=== PATIENT | male | born 1975 | race Hispanic/Latino ===

== ENCOUNTER 2021-07-17 17:02 | Emergency (ER) | payer OTHER ==
[~2021-07-17] VITALS: Ht 177.8 cm; Wt 68.5 kg
[2021-07-17 17:04] VITALS: BP 153/86
[2021-07-17 17:25] LABS: APPEARANCE,URINE Clear (CLEAR); BILIRUBIN,URINE Negative (NEGATIVE); COLOR,URINE Yellow (YELLOW); GLUCOSE, URINE (UA) >=1000 mg/dL (NEGATIVE); KETONES,URINE Negative (NEGATIVE); LEUKOCYTE ESTERASE ,URINE Negative (NEGATIVE); NITRATE,URINE Negative (NEGATIVE); OCCULT BLOOD,URINE Negative (NEGATIVE); PROTEIN,URINE Negative (NEGATIVE)
[2021-07-17] MEDS ORDERED: 0.9%NACL 1000ML 1,000 ML IV ONE (17:30)
[2021-07-17 17:34] LABS: BASOPHILS % (AUTO) 0.5 % (0.0-5.0); EOSINOPHILS % (AUTO) 0.7 % (0.0-8.0); HEMATOCRIT 40.4 % (42-54); LYMPHOCYTES % (AUTO) 19.8 % (21.0-51.0); MEAN CORPUSCULAR HEMOGLOBIN 32.2 pg (27.0-33.0); MEAN CORPUSCULAR HGB CONC 33.9 g/dL (32.0-36.0); MEAN CORPUSCULAR VOLUME 94.8 fL (79-99); MONOCYTES % (AUTO) 9.4 % (3.0-13.0); NEUTROPHILS % (AUTO) 69.1 % (40.0-77.0); PLATELET COUNT (AUTO) 256 K/uL (130-400); RED BLOOD CELL COUNT(AUTO) 4.26 MIL/uL (4.50-6.20); RED CELL DISTRIBUTION WIDTH 11.5 % (11.0-15.5); WHITE BLOOD COUNT (AUTO) 4.3 K/uL (4.8-10.8)
[2021-07-17 17:50] LABS: BACTERIA,URINE Rare /HPF (None Seen); MUCUS,URINE Few LPF (None Seen); RBC,URINE 0-1 /HPF (0-1); SQUAMOUS EPITHELIAL CELL,UR Rare /HPF (0-2); WBC,URINE 0-1 /HPF (0-1)
[2021-07-17 17:51] LABS: POTASSIUM 4.8 mmol/L (3.5-5.1)
[2021-07-17 17:56] LABS: ALBUMIN 3.7 g/dL (3.5-5.0); BILIRUBIN,TOTAL 0.7 mg/dL (0.2-1.0); TOTAL PROTEIN, SERUM 8.6 g/dL (6.0-8.3)
[2021-07-17] MEDS ORDERED: KETOROLAC 15MG/ML VIAL (15MG/ML) IV ONE (18:00)
[2021-07-17] MEDS ORDERED: AZIT500T2 PO (18:37)
[2021-07-17] MEDS ORDERED: IBUP-2070 PO (18:37)
== END 2021-07-17 18:51 | disposition home or self-care (01) ==
LOC: EDH 17:02
DX: J18.1 Lobar pneumonia, unspecified organism (principal); R10.12 Left upper quadrant pain; R22.2 Localized swelling, mass and lump, trunk; Z20.822 Contact with and (suspected) exposure to COVID-19; E10.9 Type 1 diabetes mellitus without complications; Z98.890 Other specified postprocedural states
CPT/HCPCS: 36415; 74176; 80053; 81001; 85025; 87635; 87804 ×2; 96361; 96374; 99284; C9803; J1885; J7030

== ENCOUNTER 2021-08-13 18:24 | Emergency (ER) | payer OTHER ==
[~2021-08-13] VITALS: Ht 177.8 cm; Wt 70.8 kg
[~2021-08-13 18:24] MED LIST: AZIT500T2 PO; IBUP-2070 PO
[2021-08-13 18:28] VITALS: BP 98/60
[2021-08-13] MEDS ORDERED: D-ME1POW16 PO (19:09)
[2021-08-13] MEDS ORDERED: NIRM1TAB PO (19:09)
== END 2021-08-13 19:27 | disposition home or self-care (01) ==
LOC: EDH 18:24
DX: U07.1 COVID-19 (principal); J06.9 Acute upper respiratory infection, unspecified; E11.9 Type 2 diabetes mellitus without complications; Z79.899 Other long term (current) drug therapy; Z98.890 Other specified postprocedural states
CPT/HCPCS: 87635; 87804 ×2; 87880; 99283; C9803